=== PATIENT | male | born 1970 | race American Indian/Alaskan Native ===

== ENCOUNTER 2016-09-03 11:16 | Emergency (ER) | payer SELFPAY ==
--- NOTE | 2016-09-03 12:56 | Emergency Department Report ---
ED Back Pain/Injury HPI - General Chief Complaint: Back Pain/Injury Stated Complaint: BACK PAIN Time Seen by Provider: 09/03/16 12:54 Source: patient Limitations: No Limitations - History of Present Illness Initial Comments: 46-year-old male past medical history smoker presents with complaint of right lower back pain after lifting 200 pound television 3 days ago. Patient states that he was straining his back as he did this. Patient denies any saddle paresthesias no bladder or bowel incontinence patient is fully ambulatory without assistance. Patient states that his back is aching and he felt some muscle spasm. Denies radiation of back pain into buttock or leg. Denies any direct trauma. Was in usual state of health until lifting this object Complaint: back pain Onset/Timin -: days(s) Similar Symptoms Previously: No Place: home Radiation: none Severity: moderate Severity scale (0 -10): 7 Quality: aching Consistency: intermittent Improves With: immobilization, supine Worsens With: movement Context: while lifting, turning/twisting, bending Associated Symptoms: denies other symptoms Treatments Prior to Arrival: NSAIDS - Related Data Previous Rx's Medication Instructions Recorded Last Taken Type Cyclobenzaprine [Flexeril] 10 mg PO TID PRN #8 tablet 09/03/16 Unknown Rx Ibuprofen [Motrin] 600 mg PO Q8H PRN #25 tablet 09/03/16 Unknown Rx Allergies Allergy/AdvReac Type Severity Reaction Status Date / Time bee venom (honey bee) Allergy Swelling Verified 09/03/16 11:21 ED Review of Systems ROS: Stated complaint: BACK PAIN Other details as noted in HPI Constitutional: denies: chills, fever Eyes: denies: eye pain, eye discharge, vision change ENT: denies: ear pain, throat pain Respiratory: denies: cough, shortness of breath, wheezing Cardiovascular: denies: chest pain, palpitations Endocrine: no symptoms reported Gastrointestinal: denies: abdominal pain, nausea, diarrhea Genitourinary: denies: urgency, dysuria Musculoskeletal: back pain (3 days of lower back pain on the right side). denies: joint swelling, arthralgia Skin: denies: rash, lesions Neurological: denies: headache, weakness, paresthesias Psychiatric: denies: anxiety, depression Hematological/Lymphatic: denies: easy bleeding, easy bruising ED Past Medical Hx - Past Medical History Previous Medical History?: No - Surgical History Past Surgical History?: No - Social History Smoking Status: Current Every Day Smoker Substance Use Type: Alcohol - Medications Home Medications: Home Medications Medication Instructions Recorded Confirmed Last Taken Type Cyclobenzaprine [Flexeril] 10 mg PO TID PRN #8 tablet 09/03/16 Unknown Rx Ibuprofen [Motrin] 600 mg PO Q8H PRN #25 tablet 09/03/16 Unknown Rx ED Physical Exam - General Limitations: No Limitations General appearance: alert, in no apparent distress - Head Head exam: Present: atraumatic, normocephalic - Eye Eye exam: Present: normal appearance, PERRL, EOMI - ENT ENT exam: Present: mucous membranes moist - Neck Neck exam: Present: normal inspection - Respiratory Respiratory exam: Present: normal lung sounds bilaterally. Absent: respiratory distress - Cardiovascular Cardiovascular Exam: Present: regular rate, normal rhythm. Absent: systolic murmur, diastolic murmur, rubs, gallop - GI/Abdominal GI/Abdominal exam: Present: soft, normal bowel sounds - Rectal Rectal exam: Present: deferred - Extremities Exam Extremities exam: Present: normal inspection - Back Exam Back exam: Present: normal inspection, paraspinal tenderness (reproducible tenderness in the right latissimus region reproducible on palpation of right lower back. There is no radiation of the pain. There is no visible back wall ecchymosis.) - Neurological Exam Neurological exam: Present: alert, oriented X3, CN II-XII intact, normal gait - Psychiatric Psychiatric exam: Present: normal affect, normal mood - Skin Skin exam: Present: warm, dry, intact, normal color. Absent: rash ED Course Vital Signs 09/03/16 09/03/16 09/03/16 11:23 13:41 13:49 Temperature 97.8 F 98 F Pulse Rate 66 62 Respiratory 17 18 18 Rate Blood Pressure 112/79 Blood Pressure 118/68 [Left] O2 Sat by Pulse 99 100 Oximetry ED Medical Decision Making - Medical Decision Making A/P: Lower back muscle strain 1-Motrin and Flexeril when necessary 2-advised patient to rest his back and not do any heavy or activity or heavy lifting for several days 3-patient has no neurological deficits no saddle paresthesias fully ambulatory deep tendon reflexes are intact and strength is 5 out of 5 all extremities 4- follow-up with primary care doctor Critical care attestation.: If time is entered above; I have spent that time in minutes in the direct care of this critically ill patient, excluding procedure time. ED Disposition Clinical Impression: Low back strain Qualifiers: Encounter type: initial encounter Qualified Code(s): S39.012A - Strain of muscle, fascia and tendon of lower back, initial encounter Disposition: TO HOME OR SELFCARE Is pt being admited?: No Does the pt Need Aspirin: No Condition: Stable Instructions: Muscle Strain (ED), Low Back Strain (ED), Acute Low Back Pain (ED ) Additional Instructions: Patient states he has been having lower back pain for the last 3 days. Since Wednesday. Prescriptions: Cyclobenzaprine [Flexeril] 10 mg PO TID PRN #8 tablet PRN Reason: Muscle Spasm Ibuprofen [Motrin] 600 mg PO Q8H PRN #25 tablet PRN Reason: Pain Referrals: [facility] [Provider Group] - 3-5 Days Forms: Work/School Release Form(ED) Time of Disposition: 13:38
[2016-09-03] MEDS ORDERED: MOTRIN PO ONE (13:34)
[2016-09-03 13:50] VITALS: BP 118/68
== END 2016-09-03 13:50 | disposition home or self-care (01) ==
LOC: ED 11:16
DX: S39.012A Strain of muscle, fascia and tendon of lower back, initial encounter (principal); F17.200 Nicotine dependence, unspecified, uncomplicated; X58.XXXA Exposure to other specified factors, initial encounter; Y93.9 Activity, unspecified; Y92.9 Unspecified place or not applicable; Y99.9 Unspecified external cause status
CPT/HCPCS: 99282

== ENCOUNTER 2016-10-20 21:20 | Emergency (ER) | payer SELFPAY ==
[2016-10-20 21:31] VITALS: BP 111/80
--- NOTE | 2016-10-20 22:53 | XRay Report ---
FINAL REPORT EXAM: XR ELBOW BILAT 3+V HISTORY: BILATERAL elbow injury/PAIN TECHNIQUE: AP, lateral, and oblique portable views of each elbow PRIORS: None. FINDINGS: No evidence for acute fracture or dislocation is seen. The soft tissues are unremarkable. The anterior fat pad is normal. No posterior fat pad is noted. Bony mineralization is normal. IMPRESSION: No acute soft tissue or bony abnormality noted.
== END 2016-10-21 02:30 | disposition left against medical advice (07) ==
LOC: ED 21:20
DX: M25.521 Pain in right elbow (principal); M25.522 Pain in left elbow; Z53.21 Procedure and treatment not carried out due to patient leaving prior to being seen by health care provider

== ENCOUNTER 2016-12-02 11:29 | Emergency (ER) | payer SELFPAY ==
--- NOTE | 2016-12-02 13:46 | XRay Report ---
ROUTINE CHEST, TWO VIEWS: Cough, SOB. PA and lateral views demonstrate the heart and mediastinal contour to be of normal size and shape. The lungs are clear and fully expanded and the soft tissues and bony structures are normal. IMPRESSION: Normal study.
--- NOTE | 2016-12-02 14:03 | Emergency Department Report ---
ED ENT HPI - General Chief complaint: Upper Respiratory Infection Stated complaint: COUGHING, WEAK Time Seen by Provider: 12/02/16 12:31 Source: patient Mode of arrival: Ambulatory Limitations: No Limitations - History of Present Illness Initial comments: This is a 46-year-old male nontoxic, well nourished in appearance, no acute signs of distress presents to the ED complaining of sore throat, productive green mucus production, cough, body aches 6 days. Patient denies any fever, chills, chest pain, shortness of breath, stiff neck, nausea, vomiting, numbness or tingling. Patient denies any recent callus, long car rides or recent hospital stays. Patient denies calf pain or tenderness, or hemoptysis. Patient states allergies to honey bee. Denies any medical history. MD complaint: sore throat, other (cough) -: Gradual, days(s) (6) Location: throat Severity: mild Severity scale (0 -10): 8 Quality: aching Consistency: constant Improves with: none Worsens with: swallowing Associated Symptoms: cough, sore throat. denies: fever, gum swelling, toothache , pain with swallowing, tinnitus, hearing loss, discharge from ear, rhinorrhea - Related Data Previous Rx's Medication Instructions Recorded Last Taken Type Cyclobenzaprine [Flexeril] 10 mg PO TID PRN #8 tablet 09/03/16 Unknown Rx Ibuprofen [Motrin] 600 mg PO Q8H PRN #25 tablet 09/03/16 Unknown Rx Amoxicillin [Trimox CAP] 500 mg PO BID #20 capsule 12/02/16 Unknown Rx Benzonatate [Tessalon Perle] 100 mg PO Q6H PRN #20 capsule 12/02/16 Unknown Rx Nystas/Diphen/Xyl Visc/Mylanta 480 ml MM Q8H 10 Days 12/02/16 Unknown Rx [Magic Mouthwash] Allergies Allergy/AdvReac Type Severity Reaction Status Date / Time venom-honey bee Allergy Swelling Verified 09/03/16 11:21 [bee venom (honey bee)] ED Dental HPI - General Chief complaint: Upper Respiratory Infection Stated complaint: COUGHING, WEAK Time Seen by Provider: 12/02/16 12:31 Source: patient Mode of arrival: Ambulatory Limitations: No Limitations - Related Data Previous Rx's Medication Instructions Recorded Last Taken Type Cyclobenzaprine [Flexeril] 10 mg PO TID PRN #8 tablet 09/03/16 Unknown Rx Ibuprofen [Motrin] 600 mg PO Q8H PRN #25 tablet 09/03/16 Unknown Rx Amoxicillin [Trimox CAP] 500 mg PO BID #20 capsule 12/02/16 Unknown Rx Benzonatate [Tessalon Perle] 100 mg PO Q6H PRN #20 capsule 12/02/16 Unknown Rx Nystas/Diphen/Xyl Visc/Mylanta 480 ml MM Q8H 10 Days 12/02/16 Unknown Rx [Magic Mouthwash] Allergies Allergy/AdvReac Type Severity Reaction Status Date / Time venom-honey bee Allergy Swelling Verified 09/03/16 11:21 [bee venom (honey bee)] ED Review of Systems ROS: Stated complaint: COUGHING, WEAK Other details as noted in HPI Constitutional: denies: chills, fever Eyes: denies: eye pain, eye discharge, vision change ENT: denies: ear pain, throat pain Respiratory: cough. denies: shortness of breath, wheezing Cardiovascular: denies: chest pain, palpitations Endocrine: no symptoms reported Gastrointestinal: denies: abdominal pain, nausea, diarrhea Genitourinary: denies: urgency, dysuria Musculoskeletal: denies: back pain, joint swelling, arthralgia Skin: denies: rash, lesions Neurological: denies: headache, weakness, paresthesias Psychiatric: denies: anxiety, depression Hematological/Lymphatic: denies: easy bleeding, easy bruising ED Past Medical Hx - Past Medical History Previous Medical History?: No - Surgical History Past Surgical History?: No - Social History Smoking Status: Current Every Day Smoker Substance Use Type: Alcohol - Medications Home Medications: Home Medications Medication Instructions Recorded Confirmed Last Taken Type Cyclobenzaprine [Flexeril] 10 mg PO TID PRN #8 tablet 09/03/16 Unknown Rx Ibuprofen [Motrin] 600 mg PO Q8H PRN #25 tablet 09/03/16 Unknown Rx Amoxicillin [Trimox CAP] 500 mg PO BID #20 capsule 12/02/16 Unknown Rx Benzonatate [Tessalon Perle] 100 mg PO Q6H PRN #20 capsule 12/02/16 Unknown Rx Nystas/Diphen/Xyl Visc/Mylanta 480 ml MM Q8H 10 Days 12/02/16 Unknown Rx [Magic Mouthwash] ED Physical Exam - General Limitations: No Limitations General appearance: alert, in no apparent distress - Head Head exam: Present: atraumatic, normocephalic, normal inspection - Eye Eye exam: Present: normal appearance, PERRL, EOMI. Absent: scleral icterus, conjunctival injection, nystagmus, periorbital swelling, periorbital tenderness - ENT ENT exam: Present: mucous membranes moist, TM's normal bilaterally, normal external ear exam - Expanded ENT Exam Expanded Mouth exam: Present: normal external inspection, tongue normal. Absent: drooling, trismus, muffled voice, tongue elevation, laceration Teeth exam: Present: normal inspection Throat exam: Positive: tonsillar erythema, tonsillomegaly (2+), tonsillar exudate, other (Uvula midline. No abscess or swelling noted. ). Negative: R peritonsillar mass, L peritonsillar mass - Neck Neck exam: Present: normal inspection, full ROM. Absent: tenderness, meningismus, lymphadenopathy, thyromegaly - Respiratory Respiratory exam: Present: normal lung sounds bilaterally. Absent: respiratory distress, wheezes, rales, rhonchi, stridor, chest wall tenderness, accessory muscle use, decreased breath sounds, prolonged expiratory - Cardiovascular Cardiovascular Exam: Present: regular rate, normal rhythm, normal heart sounds. Absent: systolic murmur, diastolic murmur, rubs, gallop - GI/Abdominal GI/Abdominal exam: Present: soft, normal bowel sounds. Absent: distended, tenderness, guarding, rebound, rigid, diminished bowel sounds - Rectal Rectal exam: Present: deferred - Extremities Exam Extremities exam: Present: normal inspection, full ROM, normal capillary refill. Absent: tenderness, pedal edema, joint swelling, calf tenderness - Back Exam Back exam: Present: normal inspection, full ROM. Absent: tenderness, CVA tenderness (R), CVA tenderness (L), muscle spasm, paraspinal tenderness, vertebral tenderness, rash noted - Neurological Exam Neurological exam: Present: alert, oriented X3, CN II-XII intact, normal gait, reflexes normal - Psychiatric Psychiatric exam: Present: normal affect, normal mood - Skin Skin exam: Present: warm, dry, intact, normal color. Absent: rash ED Course Vital Signs 12/02/16 11:33 Temperature 98.5 F Pulse Rate 95 H Respiratory 20 Rate Blood Pressure 128/85 O2 Sat by Pulse 100 Oximetry - Reevaluation(s) Reevaluation #1: 12/02/16 14:04 Patient is speaking in full sentences with no signs of distress noted. ED Medical Decision Making - Medical Decision Making 46-year-old male that presents with upper respiratory infection and tonsillitis with exudate. Patient is stable and was examined by me. Influenza swab has been obtained with negative findings. CT of the chest has been obtained and dictated by radiologist with normal examination. Patient notified of x-ray results with him further questioning by the patient. Patient received lidocaine viscus in the ED patient stated she was better and sore throat has subsided. Patient be treated with amoxicillin. Patient was instructed to follow -up with a primary care doctor in 3-5 days or if symptoms worsen and continue return to emergency room as soon as possible possible. Patient is hemodynamically stable with stable vital signs. Patient states he is feeling better. At time time of discharge, the patient does not seem toxic or ill in appearance. No acute signs of distress noted. Patient agrees to discharge treatment plan of care. No further questions noted by the patient. Critical care attestation.: If time is entered above; I have spent that time in minutes in the direct care of this critically ill patient, excluding procedure time. ED Disposition Clinical Impression: Tonsillitis with exudate Upper respiratory infection Qualifiers: URI type: unspecified URI Qualified Code(s): J06.9 - Acute upper respiratory infection, unspecified Disposition: DC-01 TO HOME OR SELFCARE Is pt being admited?: No Does the pt Need Aspirin: No Condition: Stable Instructions: Amoxicillin (By mouth), Upper Respiratory Infection (ED), Tonsillitis (ED) Additional Instructions: Follow-up with a primary care doctor in 3-5 days or if symptoms worsen and continue return to emergency room as soon as possible possible. Prescriptions: Amoxicillin [Trimox CAP] 500 mg PO BID #20 capsule Benzonatate [Tessalon Perle] 100 mg PO Q6H PRN #20 capsule PRN Reason: Cough Nystas/Diphen/Xyl Visc/Mylanta [Magic Mouthwash] 480 ml MM Q8H 10 Days Referrals: NOEMI LANDA MD [Primary Care Provider] - 3-5 Days PACO BALDERRAMA MD [Staff Physician] - 3-5 Days [facility] [Outside] - 3-5 Days [facility] [Outside] - 3-5 Days Forms: Work/School Release Form(ED)
[2016-12-02] MEDS ORDERED: LIDOCAINE VISCOUS 2% PO ONE (14:12)
[2016-12-02] MEDS ORDERED: TESSALON PERLES PO ONE (14:12)
[2016-12-02 14:13] VITALS: BP 106/62
== END 2016-12-02 14:23 | disposition home or self-care (01) ==
LOC: ED 11:29
DX: J06.9 Acute upper respiratory infection, unspecified (principal); F17.200 Nicotine dependence, unspecified, uncomplicated; Z91.030 Bee allergy status
CPT/HCPCS: 71020; 87400; 99283

== ENCOUNTER 2017-03-24 16:25 | Emergency (ER) | payer OTHER ==
[2017-03-24 16:53] VITALS: BP 110/71
[2017-03-24] MEDS ORDERED: TORADOL IM ONE (20:48)
--- NOTE | 2017-03-24 21:45 | Emergency Department Report ---
ED Back Pain/Injury HPI - General Chief Complaint: Back Pain/Injury Stated Complaint: LOWER BACK PAIN Time Seen by Provider: 03/24/17 19:56 Source: patient Limitations: No Limitations - History of Present Illness Initial Comments: This is a 46-year-old male nontoxic, well nourished in appearance, no acute signs of distress presents to the ED with c/o of chronic intermittent low back pain x8 years. Patient denies any trauma to the region. Patient states back pain radiates to his left lower extremity. Patient had a MRI 8 years ago and was diagnosed with severe degenerative lumbar spine. Patient denies any chest pain, shortness of breath, bladder or bowel stability, numbness, tingling, fever , chills, nausea, vomiting, headache or stiff neck. Patient denies any drug allergies. Past medical history includes low back pain. MD Complaint: back pain -: year(s) Similar Symptoms Previously: Yes Radiation: left leg Severity: mild Severity scale (0 -10): 8 Quality: aching Consistency: intermittent Improves With: immobilization, supine, sitting upright Worsens With: movement, walking Associated Symptoms: denies other symptoms. denies: confusion, weakness, chest pain, numbness, difficulty walking, cough, difficulty urinating, diaphoresis, incontinence, fever/chills, constipation, headaches, abdominal pain, loss of appetite, malaise, nausea/vomiting, rash, seizure, shortness of breath, syncope - Related Data Previous Rx's Medication Instructions Recorded Last Taken Type Cyclobenzaprine [Flexeril] 10 mg PO TID PRN #8 tablet 09/03/16 Unknown Rx Ibuprofen [Motrin] 600 mg PO Q8H PRN #25 tablet 09/03/16 Unknown Rx Amoxicillin [Trimox CAP] 500 mg PO BID #20 capsule 12/02/16 Unknown Rx Benzonatate [Tessalon Perle] 100 mg PO Q6H PRN #20 capsule 12/02/16 Unknown Rx Nystas/Diphen/Xyl Visc/Mylanta 480 ml MM Q8H 10 Days udc 12/02/16 Unknown Rx [Magic Mouthwash] Cyclobenzaprine [Flexeril] 10 mg PO QHS PRN #7 tablet 03/24/17 Unknown Rx Ibuprofen [Motrin] 600 mg PO Q8H PRN #30 tablet 03/24/17 Unknown Rx Allergies Allergy/AdvReac Type Severity Reaction Status Date / Time venom-honey bee Allergy Swelling Verified 09/03/16 11:21 [bee venom (honey bee)] ED Review of Systems ROS: Stated complaint: LOWER BACK PAIN Other details as noted in HPI Constitutional: denies: chills, fever Eyes: denies: eye pain, eye discharge, vision change ENT: denies: ear pain, throat pain Respiratory: denies: cough, shortness of breath, wheezing Cardiovascular: denies: chest pain, palpitations Endocrine: no symptoms reported Gastrointestinal: denies: abdominal pain, nausea, diarrhea Genitourinary: denies: urgency, dysuria Musculoskeletal: back pain. denies: joint swelling, arthralgia Skin: denies: rash, lesions Neurological: denies: headache, weakness, paresthesias Psychiatric: denies: anxiety, depression Hematological/Lymphatic: denies: easy bleeding, easy bruising ED Past Medical Hx - Past Medical History Previous Medical History?: Yes Additional medical history: Back pain/injury - Surgical History Past Surgical History?: No - Social History Smoking Status: Current Every Day Smoker Substance Use Type: Alcohol, Non Opiate Pain, Prescribed - Medications Home Medications: Home Medications Medication Instructions Recorded Confirmed Last Taken Type Cyclobenzaprine [Flexeril] 10 mg PO TID PRN #8 tablet 09/03/16 Unknown Rx Ibuprofen [Motrin] 600 mg PO Q8H PRN #25 tablet 09/03/16 Unknown Rx Amoxicillin [Trimox CAP] 500 mg PO BID #20 capsule 12/02/16 Unknown Rx Benzonatate [Tessalon Perle] 100 mg PO Q6H PRN #20 capsule 12/02/16 Unknown Rx Nystas/Diphen/Xyl Visc/Mylanta 480 ml MM Q8H 10 Days udc 12/02/16 Unknown Rx [Magic Mouthwash] Cyclobenzaprine [Flexeril] 10 mg PO QHS PRN #7 tablet 03/24/17 Unknown Rx Ibuprofen [Motrin] 600 mg PO Q8H PRN #30 tablet 03/24/17 Unknown Rx ED Physical Exam - General Limitations: No Limitations General appearance: alert, in no apparent distress - Head Head exam: Present: atraumatic, normocephalic - Eye Eye exam: Present: normal appearance, PERRL, EOMI Pupils: Present: normal accommodation - ENT ENT exam: Present: normal exam, normal orophraynx, mucous membranes moist, TM's normal bilaterally, normal external ear exam - Neck Neck exam: Present: normal inspection, full ROM. Absent: tenderness, meningismus, lymphadenopathy, thyromegaly - Respiratory Respiratory exam: Present: normal lung sounds bilaterally. Absent: respiratory distress, wheezes, rales, rhonchi, stridor, chest wall tenderness, accessory muscle use, decreased breath sounds, prolonged expiratory - Cardiovascular Cardiovascular Exam: Present: regular rate, normal rhythm, normal heart sounds. Absent: irregular rhythm, systolic murmur, diastolic murmur, rubs, gallop - GI/Abdominal GI/Abdominal exam: Present: soft, normal bowel sounds. Absent: distended, tenderness, guarding, rebound, rigid, diminished bowel sounds - Rectal Rectal exam: Present: deferred - Extremities Exam Extremities exam: Present: normal inspection, full ROM, normal capillary refill. Absent: tenderness, pedal edema, joint swelling, calf tenderness - Back Exam Back exam: Present: normal inspection, full ROM, paraspinal tenderness (lumbar region). Absent: tenderness, CVA tenderness (R), CVA tenderness (L), muscle spasm, vertebral tenderness, rash noted - Expanded Back Exam Expanded Back exam: Present: normal rectal tone. Absent: saddle anesthesia Back exam: Negative Straight Leg Raising: Left, Right - Neurological Exam Neurological exam: Present: alert, oriented X3, CN II-XII intact, normal gait, reflexes normal - Psychiatric Psychiatric exam: Present: normal affect, normal mood - Skin Skin exam: Present: warm, dry, intact, normal color. Absent: rash ED Course Vital Signs 03/24/17 16:50 Temperature 98.1 F Pulse Rate 91 H Respiratory 14 Rate Blood Pressure 110/71 O2 Sat by Pulse 98 Oximetry - Reevaluation(s) Reevaluation #1: 03/24/17 21:47 Patient is speaking in full sentences with no signs of distress noted. ED Medical Decision Making - Medical Decision Making This is a 46-year-old male presents with chronic low back pain. Patient is stable and was examined by me. Patient received Toradol 30 mg IM in the ED which patient states symptoms are improving and are subsiding. Patient denies any urinary symptoms. Patient is discharged with Flexeril and Motrin and was instructed not to operate any machinery while taking Flexeril due to drowsiness. Patient was instructed Follow-up with a primary care doctor in 3-5 days or if symptoms worsen and continue return to emergency room as soon as possible. At time time of discharge, the patient does not seem toxic or ill in appearance. No acute signs of distress noted. Patient agrees to discharge treatment plan of care. No further questions noted by the patient. Critical care attestation.: If time is entered above; I have spent that time in minutes in the direct care of this critically ill patient, excluding procedure time. ED Disposition Clinical Impression: Low back strain Qualifiers: Encounter type: initial encounter Qualified Code(s): S39.012A - Strain of muscle, fascia and tendon of lower back, initial encounter Disposition: TO HOME OR SELFCARE Is pt being admited?: No Does the pt Need Aspirin: No Condition: Stable Instructions: Cyclobenzaprine (By mouth), Ibuprofen (By mouth), Low Back Strain (ED) Additional Instructions: Follow-up with your primary care doctor in 3-5 days or if symptoms worsen such as bladder or bowel stability, chest pain, short of breath, numbness or tingling sensation in extremities, headache, dizziness, visual changes, nausea vomiting, or abdominal pain, return back to emergency room as was possible. Take ibuprofen and Flexeril as prescribed. Do not operate heavy machinery while taking Flexeril due to sedation Prescriptions: Cyclobenzaprine [Flexeril] 10 mg PO QHS PRN #7 tablet PRN Reason: Muscle Spasm Ibuprofen [Motrin] 600 mg PO Q8H PRN #30 tablet PRN Reason: Pain Referrals: ADIS BURNHAM MD [Primary Care Provider] - 3-5 Days PRIMARY CARE, [Referring] - 3-5 Days [facility] [Outside] - 3-5 Days [facility] [Outside] - 3-5 Days Forms: Work/School Release Form(ED)
== END 2017-03-24 22:18 | disposition home or self-care (01) ==
LOC: ED 16:25
DX: S39.012A Strain of muscle, fascia and tendon of lower back, initial encounter (principal); F17.200 Nicotine dependence, unspecified, uncomplicated; Z91.030 Bee allergy status; G89.29 Other chronic pain; X58.XXXA Exposure to other specified factors, initial encounter; Y93.89 Activity, other specified; Y92.89 Other specified places as the place of occurrence of the external cause; Y99.8 Other external cause status
CPT/HCPCS: 96372; 99282; J1885

== ENCOUNTER 2017-04-11 08:40 | Emergency (ER) | payer OTHER ==
--- NOTE | 2017-04-11 09:46 | XRay Report ---
LEFT KNEE, 3 views: History: Left knee injury. Findings: A large joint effusion is suspected on the lateral image. Normal bone mineralization. No acute osseous findings or joint pathology is appreciated. IMPRESSION: Large joint effusion without bony abnormality. If internal derangement is suspected, MRI would provide the most information.
[2017-04-11] MEDS ORDERED: TORADOL IM ONE (12:27)
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
[2017-04-11 13:27] VITALS: BP 128/78
== END 2017-04-11 13:27 | disposition home or self-care (01) ==
LOC: ED 08:40
DX: S76.912A Strain of unspecified muscles, fascia and tendons at thigh level, left thigh, initial encounter (principal); F17.200 Nicotine dependence, unspecified, uncomplicated; Z91.030 Bee allergy status; X58.XXXA Exposure to other specified factors, initial encounter; Y93.55 Activity, bike riding; Y92.89 Other specified places as the place of occurrence of the external cause; Y99.8 Other external cause status
CPT/HCPCS: 29505; 73562; 96372; 99284; J1885

== ENCOUNTER 2017-06-28 17:35 | Emergency (ER) | payer OTHER ==
[2017-06-28 17:41] VITALS: BP 117/79
--- NOTE | 2017-06-28 20:00 | XRay Report ---
FINAL REPORT EXAM: XR HAND 3+V RT HISTORY: RIGHT HAND INJURY WITH RING FINGER DEFORMITY TECHNIQUE: Three views right hand Comparison: None FINDINGS: Normal bony mineralization. Soft tissue swelling projects over the dorsal 4th digit PIP joint without fracture identified. No dislocation. No subluxation. No radiopaque foreign body. Apparent old healed 5th boxer's fracture of the metacarpal head. IMPRESSION: Soft tissue focal swelling over the 4th digit dorsal PIP joint. No fracture or dislocation identified. Old healed boxer's fracture 5th digit.
== END 2017-06-28 17:41 | disposition left against medical advice (07) ==
LOC: ED 17:35
DX: S69.91XA Unspecified injury of right wrist, hand and finger(s), initial encounter (principal); V89.2XXA Person injured in unspecified motor-vehicle accident, traffic, initial encounter; Z53.21 Procedure and treatment not carried out due to patient leaving prior to being seen by health care provider; Y93.89 Activity, other specified; Y92.89 Other specified places as the place of occurrence of the external cause; Y99.8 Other external cause status

== ENCOUNTER 2017-12-08 16:35 | Emergency (ER) | payer OTHER ==
[2017-12-08 19:55] VITALS: BP 98/76
[2017-12-08] MEDS ORDERED: TORADOL IM ONE (20:17)
--- NOTE | 2017-12-08 21:26 | Emergency Department Report ---
ED Upper Extremity Inj HPI - General Chief Complaint: Shoulder Injury Stated Complaint: LEFT SHOULDER PAIN Time Seen by Provider: 12/08/17 20:17 Source: patient Mode of arrival: Ambulatory Limitations: No Limitations - History of Present Illness Initial Comments: This is a 47-year-old female nontoxic, well nourished in appearance, no acute signs of distress presents to the ED with c/o of left shoulder pain 2-3 weeks. Patient stated that she has been doing a lot of repetitive motions at work. Patient denies any trauma. Patient denies any numbness, tingling, fever, chills , nausea, vomiting, chest pain, shortness of breath, headache, stiff neck. Patient denies any joint swelling or joint redness. Patient denies decreased range of motion. Patient denies decreased ROM. Patient denies any drug allergies or PMH. MD Complaint: Injury to:: left, shoulder -: week(s) Other Extremity Injury: Shoulder: Left Other Injuries: none Place: work Severity scale (0 -10): 8 Improves With: immobilization Worsens With: movement of extremity Associated Symptoms: denies other symptoms. denies: weakness, numbness, neck pain, suspects foreign body, nausea/vomiting, heard/felt popping sensat - Related Data Previous Rx's Medication Instructions Recorded Last Taken Type Cyclobenzaprine [Flexeril] 10 mg PO TID PRN #8 tablet 09/03/16 Unknown Rx Ibuprofen [Motrin] 600 mg PO Q8H PRN #25 tablet 09/03/16 Unknown Rx Amoxicillin [Trimox CAP] 500 mg PO BID #20 capsule 12/02/16 Unknown Rx Benzonatate [Tessalon Perle] 100 mg PO Q6H PRN #20 capsule 12/02/16 Unknown Rx Nystas/Diphen/Xyl Visc/Mylanta 480 ml MM Q8H 10 Days udc 12/02/16 Unknown Rx [Magic Mouthwash] Cyclobenzaprine [Flexeril] 10 mg PO QHS PRN #7 tablet 03/24/17 Unknown Rx Ibuprofen [Motrin] 600 mg PO Q8H PRN #30 tablet 03/24/17 Unknown Rx Ibuprofen [Motrin] 600 mg PO Q8H PRN #30 tablet 04/11/17 Unknown Rx traMADol [Ultram] 50 mg PO Q6HR PRN #12 tablet 04/11/17 Unknown Rx Cyclobenzaprine [Flexeril] 10 mg PO QHS PRN #10 tablet 12/08/17 Unknown Rx Ibuprofen [Motrin] 600 mg PO Q8H PRN #20 tablet 12/08/17 Unknown Rx Allergies Allergy/AdvReac Type Severity Reaction Status Date / Time venom-honey bee Allergy Swelling Verified 12/08/17 16:53 [bee venom (honey bee)] ED Review of Systems ROS: Stated complaint: LEFT SHOULDER PAIN Other details as noted in HPI Constitutional: denies: chills, fever Eyes: denies: eye pain, eye discharge, vision change ENT: denies: ear pain, throat pain Respiratory: denies: cough, shortness of breath, wheezing Cardiovascular: denies: chest pain, palpitations Endocrine: no symptoms reported Gastrointestinal: denies: abdominal pain, nausea, diarrhea Genitourinary: denies: urgency, dysuria Musculoskeletal: arthralgia. denies: back pain, joint swelling Skin: denies: rash, lesions Neurological: denies: headache, weakness, paresthesias Psychiatric: denies: anxiety, depression Hematological/Lymphatic: denies: easy bleeding, easy bruising ED Past Medical Hx - Past Medical History Previous Medical History?: No Additional medical history: Back pain/injury - Surgical History Past Surgical History?: No - Social History Smoking Status: Current Every Day Smoker Substance Use Type: None - Medications Home Medications: Home Medications Medication Instructions Recorded Confirmed Last Taken Type Cyclobenzaprine [Flexeril] 10 mg PO TID PRN #8 tablet 09/03/16 Unknown Rx Ibuprofen [Motrin] 600 mg PO Q8H PRN #25 tablet 09/03/16 Unknown Rx Amoxicillin [Trimox CAP] 500 mg PO BID #20 capsule 12/02/16 Unknown Rx Benzonatate [Tessalon Perle] 100 mg PO Q6H PRN #20 capsule 12/02/16 Unknown Rx Nystas/Diphen/Xyl Visc/Mylanta 480 ml MM Q8H 10 Days udc 12/02/16 Unknown Rx [Magic Mouthwash] Cyclobenzaprine [Flexeril] 10 mg PO QHS PRN #7 tablet 03/24/17 Unknown Rx Ibuprofen [Motrin] 600 mg PO Q8H PRN #30 tablet 03/24/17 Unknown Rx Ibuprofen [Motrin] 600 mg PO Q8H PRN #30 tablet 04/11/17 Unknown Rx traMADol [Ultram] 50 mg PO Q6HR PRN #12 tablet 04/11/17 Unknown Rx Cyclobenzaprine [Flexeril] 10 mg PO QHS PRN #10 tablet 12/08/17 Unknown Rx Ibuprofen [Motrin] 600 mg PO Q8H PRN #20 tablet 12/08/17 Unknown Rx ED Physical Exam - General Limitations: No Limitations General appearance: alert, in no apparent distress - Head Head exam: Present: atraumatic, normocephalic - Eye Eye exam: Present: normal appearance Pupils: Present: normal accommodation - ENT ENT exam: Present: normal exam, mucous membranes moist - Neck Neck exam: Present: normal inspection, full ROM. Absent: tenderness, meningismus, lymphadenopathy - Respiratory Respiratory exam: Present: normal lung sounds bilaterally. Absent: respiratory distress, wheezes, rales, rhonchi, stridor, chest wall tenderness, accessory muscle use, decreased breath sounds, prolonged expiratory - Cardiovascular Cardiovascular Exam: Present: regular rate, normal rhythm, normal heart sounds. Absent: bradycardia, tachycardia, irregular rhythm, systolic murmur, diastolic murmur, rubs, gallop - GI/Abdominal GI/Abdominal exam: Present: soft, normal bowel sounds. Absent: distended, tenderness, guarding, rebound, rigid, diminished bowel sounds - Rectal Rectal exam: Present: deferred - Extremities Exam Extremities exam: Present: normal inspection, full ROM, tenderness, normal capillary refill. Absent: joint swelling - Expanded Upper Extremity Exam Left General: Present: normal inspection Shoulder Exam: Present: normal inspection, full ROM, tenderness. Absent: swelling, abrasion, laceration, ecchymosis, deformity, crepidus, dislocation, erythema, tenderness over AC joint Upper Arm exam: Present: normal inspection, full ROM. Absent: tenderness, swelling Elbow exam: Present: normal inspection, full ROM. Absent: tenderness, swelling Forearm Wrist exam: Present: normal inspection, full ROM. Absent: tenderness, swelling Hand Wrist exam: Present: normal inspection, full ROM. Absent: tenderness, swelling Neuro motor exam: Present: wrist extension intact, thumb opposition intact, thumb IP flexion intact, thumb adduction intact, fingers 2-5 abduction intact Neurosensory exam: Present: 2-point discrimination, radial nerve intact, ulnar nerve intact, median nerve intact Vascular: Present: vascular compromise, normal capillary refill, radial pulse, brachial pulse, ulnar pulse - Back Exam Back exam: Present: normal inspection, full ROM. Absent: tenderness, CVA tenderness (R), CVA tenderness (L), muscle spasm, paraspinal tenderness, vertebral tenderness, rash noted - Neurological Exam Neurological exam: Present: alert, oriented X3, normal gait - Psychiatric Psychiatric exam: Present: normal affect, normal mood - Skin Skin exam: Present: warm, dry, intact, normal color. Absent: rash ED Course Vital Signs 12/08/17 12/08/17 12/08/17 16:53 19:55 20:28 Temperature 99 F 98.5 F Pulse Rate 75 69 Respiratory 18 16 18 Rate Blood Pressure 113/69 Blood Pressure 98/76 [Left] O2 Sat by Pulse 99 100 Oximetry - Reevaluation(s) Reevaluation #1: 12/08/17 21:25 Patient is speaking in full sentences with no signs of distress noted. ED Medical Decision Making - Medical Decision Making This is a 47-year-old female that presents with left shoulder strain. Patient is stable and was examined by me. I referred patient to an orthopedic doctor for further evaluation for possible MRI. X-ray has been obtained and dictated by the radiologist. Patient is notified of the x-ray report with noted by the patient. Patient does have normal gait with no tenderness and no joint swelling. No ecchymosis. no joint redness or swelling. Not warm to touch. No signs of cellulites present. Patient was instructed to RICE therapy. Patient received Toradol for pain which stated symptoms is improving and subsiding. Patient is discharged with Motrin. At time of discharge, the patient does not seem toxic or ill in appearance. No acute signs of distress noted. Patient agrees to discharge treatment plan of care. No further questions noted by the patient. Critical care attestation.: If time is entered above; I have spent that time in minutes in the direct care of this critically ill patient, excluding procedure time. ED Disposition Clinical Impression: Left shoulder strain Qualifiers: Encounter type: initial encounter Qualified Code(s): S46.912A - Strain of unspecified muscle, fascia and tendon at shoulder and upper arm level, left arm , initial encounter Disposition: TO HOME OR SELFCARE Is pt being admited?: No Does the pt Need Aspirin: No Condition: Stable Instructions: Rotator Cuff Injury (ED), RICE Therapy (ED) Additional Instructions: Follow-up with a Orthopedic doctor in 3-5 days or if symptoms worsen and continue return to emergency room as soon as possible. Take ibuprofen and Flexeril as prescribed. Do not operate heavy machinery while taking Flexeril due to sedation Prescriptions: Cyclobenzaprine [Flexeril] 10 mg PO QHS PRN #10 tablet PRN Reason: Muscle Spasm Ibuprofen [Motrin] 600 mg PO Q8H PRN #20 tablet PRN Reason: Pain Referrals: PRIMARY CAREMD [Primary Care Provider] - 3-5 Days MEAGAN VASQUEZ MD [Staff Physician] - 3-5 Days [facility] [Outside] - 3-5 Days Forms: Work/School Release Form(ED)
--- NOTE | 2017-12-08 22:11 | XRay Report ---
FINAL REPORT EXAM: XR SHOULDER 2+V LT HISTORY: left shoulder pain TECHNIQUE: 3 views of the left shoulder PRIORS: None. FINDINGS: The glenohumeral and acromioclavicular joints are normally aligned. The bones are normally mineralized. The soft tissues are unremarkable. IMPRESSION: Normal left shoulder.
== END 2017-12-08 22:22 | disposition home or self-care (01) ==
LOC: ED 16:35
DX: S46.912A Strain of unspecified muscle, fascia and tendon at shoulder and upper arm level, left arm, initial encounter (principal); F17.200 Nicotine dependence, unspecified, uncomplicated; Z91.030 Bee allergy status; X50.3XXA Overexertion from repetitive movements, initial encounter; Y93.89 Activity, other specified; Y92.89 Other specified places as the place of occurrence of the external cause; Y99.0 Civilian activity done for income or pay
CPT/HCPCS: 73030; 96372; 99283; J1885

== ENCOUNTER 2018-10-26 06:09 | Emergency (ER) | payer OTHER ==
[2018-10-26 06:18] VITALS: BP 128/85
--- NOTE | 2018-10-26 07:48 | Emergency Department Report ---
Eye Injury/Foreign Body - HPI Eye Location: Left Severity: Mild Tetanus Status: Up to Date Eye Symptoms: Eye Pain: No, Blurred Vision: No, Eye Redness: No, Grinding/Hammering Metal: No, Used Eye Protection: Yes, Contact Lens Use: No, Recalls Injury: No, Photophobia: No Other History: 48 yo w l eye stye for weeks. warm compresses not helping. works with wood product, wears eye protection. no trauma. no contacts. requesting work note. va unchanged. no eye pain ED Review of Systems ROS: Stated complaint: LEFT EYE IRRITATION, BLURRY Other details as noted in HPI Comment: All other systems reviewed and negative ED Past Medical Hx - Past Medical History Previous Medical History?: Yes Additional medical history: Back pain/injury - Surgical History Past Surgical History?: No - Social History Smoking Status: Current Every Day Smoker Substance Use Type: Alcohol - Medications Home Medications: Home Medications Medication Instructions Recorded Confirmed Last Taken Type Gentamicin 0.3% Ophth Oint 1 applicatio OP BID #1 tube 10/26/18 Unknown Rx diphenhydrAMINE [Benadryl CAP] 25 mg PO Q8HR PRN #12 capsule 10/26/18 Unknown Rx Eye Injury Exam - Exam General: Vital signs noted. No distress. Alert and acting appropriately. a/o stye left upper lid no conjunc. redness perrl eoms intact no eye pain globe intact ED Course Vital Signs 10/26/18 06:13 Temperature 98.0 F Pulse Rate 88 Respiratory 18 Rate Blood Pressure 128/85 O2 Sat by Pulse 100 Oximetry ED Medical Decision Making - Differential Diagnosis [facility] Critical care attestation.: If time is entered above; I have spent that time in minutes in the direct care of this critically ill patient, excluding procedure time. ED Disposition Clinical Impression: Stye Disposition: DC-01 TO HOME OR SELFCARE Is pt being admited?: No Does the pt Need Aspirin: No Condition: Stable Instructions: Shawn (ED) Additional Instructions: warm compresses med as ordered wear safety glasses follow up with eye MD referral below Referrals: SACHA HARRISON MD [Staff Physician] - 3-5 Days Forms: Work/School Release Form(ED) Time of Disposition: 07:45
== END 2018-10-26 07:56 | disposition home or self-care (01) ==
LOC: ED 06:09
DX: H00.014 Hordeolum externum left upper eyelid (principal); Z98.890 Other specified postprocedural states; F17.200 Nicotine dependence, unspecified, uncomplicated; Z79.899 Other long term (current) drug therapy
CPT/HCPCS: 99282

== ENCOUNTER 2018-12-12 09:41 | Emergency (ER) | payer OTHER ==
[2018-12-12] MEDS ORDERED: ULTRAM PO ONE (10:32)
--- NOTE | 2018-12-12 10:56 | Emergency Department Report ---
ED Back Pain/Injury HPI - General Chief Complaint: Back Pain/Injury Stated Complaint: LOWER BACK PAIN Time Seen by Provider: 12/12/18 10:10 Source: patient Limitations: No Limitations - History of Present Illness Initial Comments: 48-year-old male chronic back pain for years. Worse for 4 days. History of previous MRI showing herniated disc as per pt had no weakness or numbness reported. No recent injury -: Gradual, year(s) (multiple) Similar Symptoms Previously: Yes Radiation: abdomen (rlq) Severity scale (0 -10): 9 Quality: aching Consistency: constant Improves With: immobilization Worsens With: movement Context: while lifting, turning/twisting, bending Associated Symptoms: denies other symptoms. denies: weakness, numbness, difficulty walking, difficulty urinating, incontinence, fever/chills, nausea/vomiting, shortness of breath Treatments Prior to Arrival: other (none) - Related Data Previous Rx's Medication Instructions Recorded Last Taken Type Gentamicin 0.3% Ophth Oint 1 applicatio OP BID #1 tube 10/26/18 Unknown Rx diphenhydrAMINE [Benadryl CAP] 25 mg PO Q8HR PRN #12 capsule 10/26/18 Unknown Rx Ibuprofen [Motrin] 800 mg PO Q8HR PRN #30 tablet 12/12/18 Unknown Rx traMADol [Ultram 50 MG tab] 50 mg PO Q6HR PRN #15 tablet 12/12/18 Unknown Rx Allergies Allergy/AdvReac Type Severity Reaction Status Date / Time venom-honey bee Allergy Swelling Verified 12/08/17 16:53 [bee venom (honey bee)] ED Review of Systems ROS: Stated complaint: LOWER BACK PAIN Other details as noted in HPI ED Past Medical Hx - Past Medical History Previous Medical History?: No Additional medical history: Back pain/injury - Surgical History Past Surgical History?: No - Social History Smoking Status: Current Every Day Smoker Substance Use Type: Alcohol - Medications Home Medications: Home Medications Medication Instructions Recorded Confirmed Last Taken Type Gentamicin 0.3% Ophth Oint 1 applicatio OP BID #1 tube 10/26/18 Unknown Rx diphenhydrAMINE [Benadryl CAP] 25 mg PO Q8HR PRN #12 capsule 10/26/18 Unknown Rx Ibuprofen [Motrin] 800 mg PO Q8HR PRN #30 tablet 12/12/18 Unknown Rx traMADol [Ultram 50 MG tab] 50 mg PO Q6HR PRN #15 tablet 12/12/18 Unknown Rx ED Physical Exam - General Limitations: No Limitations - Other Other exam information: Gen.: No acute distress Head: Atraumatic Eyes: Normal appearance ENT: Moist mucous membranes Neck: Normal appearance, no posterior midline tenderness, no meningismus Chest: Clear to auscultation bilaterally Cardiovascular: Regular rate and rhythm Abdomen: Normal appearance, soft, nontender, no rebound or guarding, normal bowel sounds Back: Normal appearance, nontender, no midline tenderness. Pain 0 right side of the lower back with movement Extremity: Full range of motion, normal appearance Neuro: Alert, clear speech, no focal motor or sensory deficit Psychiatric: Appropriate Skin: No rash ED Course Vital Signs 12/12/18 12/12/18 09:46 10:44 Temperature 98.4 F Pulse Rate 85 Respiratory 16 18 Rate Blood Pressure 114/78 O2 Sat by Pulse 99 Oximetry ED Medical Decision Making - Medical Decision Making Patient with chronic pain without acute injury. Patient performs a lot of bending and twisting at work. Pain medicine and work excuse provided. Outpatient follow-up encouraged. - Differential Diagnosis chronic pain, acute injury, strain Critical Care Time: No Critical care attestation.: If time is entered above; I have spent that time in minutes in the direct care of this critically ill patient, excluding procedure time. ED Disposition Clinical Impression: Acute exacerbation of chronic low back pain Disposition: TO HOME OR SELFCARE Is pt being admited?: No Does the pt Need Aspirin: No Condition: Stable Instructions: Chronic Back Pain (ED) Additional Instructions: Take the medication as prescribed. Follow-up with your doctor or with the doctor/clinic provided. Return if symptoms worsen as indicated by your discharge instructions. Prescriptions: Ibuprofen [Motrin] 800 mg PO Q8HR PRN #30 tablet PRN Reason: Pain, Moderate (4-6) traMADol [Ultram 50 MG tab] 50 mg PO Q6HR PRN #15 tablet PRN Reason: Pain Referrals: [facility] [Provider Group] - 3-5 Days GERMAINE BEAUCHAMP MD [Staff Physician] - 3-5 Days MEAGAN VASQUEZ MD [Staff Physician] - 3-5 Days Forms: Work/School Release Form(ED) Time of Disposition: 11:18
[2018-12-12] MEDS: TORADOL IM ONE ×2 (11:26→11:55)
[2018-12-12 12:51] VITALS: BP 118/74
== END 2018-12-12 11:27 | disposition home or self-care (01) ==
LOC: ED 09:41
DX: M54.5 Low back pain (principal); G89.29 Other chronic pain; F17.200 Nicotine dependence, unspecified, uncomplicated
CPT/HCPCS: 96372; 99282; J1885

== ENCOUNTER 2020-02-19 07:07 | Emergency (ER) | payer SELFPAY ==
[2020-02-19 07:22] VITALS: BP 114/79
--- NOTE | 2020-02-19 12:40 | Emergency Department Report ---
Eye Injury/Foreign Body - HPI Duration: 1 week Eye Location: Right Severity: Mild Tetanus Status: Up to Date Eye Symptoms: Eye Pain: No, Blurred Vision: No, Eye Redness: No, Grinding/Hammering Metal: No, Contact Lens Use: No, Recalls Injury: No, Photophobia: No Other History: Patient presents with complaints of stye to the right upper lid x1 week, no relief with warm compresses ED Review of Systems ROS: Stated complaint: RT EYE INFECTION Other details as noted in HPI Comment: All other systems reviewed and negative Eyes: as per HPI ED Past Medical Hx - Past Medical History Previous Medical History?: No Additional medical history: Back pain/injury - Surgical History Past Surgical History?: No - Social History Smoking Status: Current Every Day Smoker Substance Use Type: Alcohol - Medications Home Medications: Home Medications Medication Instructions Recorded Confirmed Last Taken Type Gentamicin 0.3% Ophth Oint 1 applicatio OP BID #1 tube 10/26/18 Unknown Rx diphenhydrAMINE [Benadryl CAP] 25 mg PO Q8HR PRN #12 capsule 10/26/18 Unknown Rx Ibuprofen [Motrin] 800 mg PO Q8HR PRN #30 tablet 12/12/18 Unknown Rx traMADoL [Ultram 50 MG tab] 50 mg PO Q6HR PRN #15 tablet 12/12/18 Unknown Rx Erythromycin [Erythromycin Ophth 1 applicatio OD BID #1 tube 02/19/20 Unknown Rx Oint] Eye Injury Exam - Exam General: Vital signs noted. No distress. Alert and acting appropriately. Alert and oriented x3, GCS 15 Pupils are equal round and reactive to light and accommodation, the right upper lid contains an internal hordeolum medially without evidence of superimposed cellulitis. ED Course Vital Signs 02/19/20 07:21 Temperature 98.0 F Pulse Rate 79 Respiratory 18 Rate Blood Pressure 114/79 Blood Pressure 114/79 [Right] O2 Sat by Pulse 95 Oximetry ED Medical Decision Making - Medical Decision Making Patient presents with internal hordeolum, no complication such as periorbital cellulitis. We will prescribe topical therapy continue warm compresses and follow-up with ophthalmology if not improved. - Differential Diagnosis Hordeolum, chalazion Critical care attestation.: If time is entered above; I have spent that time in minutes in the direct care of this critically ill patient, excluding procedure time. ED Disposition Clinical Impression: Hordeolum internum of right upper eyelid Disposition: DC- TO HOME OR SELFCARE Is pt being admited?: No Condition: Good Instructions: Shawn Prescriptions: Erythromycin [Erythromycin Ophth Oint] 1 applicatio OD BID #1 tube Referrals: PRIMARY CARE, [Primary Care Provider] - 3-5 Days TANA IVEY MD [Staff Physician] - 3-5 Days Time of Disposition: 12:39
== END 2020-02-19 12:53 | disposition home or self-care (01) ==
LOC: ED 07:07
DX: H00.021 Hordeolum internum right upper eyelid (principal); F17.200 Nicotine dependence, unspecified, uncomplicated; Z79.899 Other long term (current) drug therapy; Z91.018 Allergy to other foods
CPT/HCPCS: 99281

== ENCOUNTER 2020-11-27 09:18 | Emergency (ER) | payer SELFPAY ==
[2020-11-27 09:38] VITALS: BP 110/69
--- NOTE | 2020-11-27 10:08 | Emergency Department Report ---
Abscess Boil HPI - HPI Chief Complaint: Skin/Abscess/Foreign Body Stated Complaint: BOIL ON FACE/ INFECTED TOE/ NERVE PAIN Time Seen by Provider: 11/27/20 10:08 Duration: >1 Week Location: Other Severity: Mild History: Yes Pain, Yes Purulent Drainage, Yes Previous History, No Fever, No Numbness, No Foreign Body, No Insect Bite HPI: 50 yo aa comes to ER with boil on face. It is open and draining. He is also co chronic nail bed growth issues- p dropping a can on it years ago. Requesting work note. nad on exam. no fever. no chills Home Medications: Previous Rx's Medication Instructions Recorded Last Taken Type Amoxicillin [Trimox CAP] 500 mg PO BID #20 capsule 11/27/20 Unknown Rx Allergies/Adverse Reactions: Allergies Allergy/AdvReac Type Severity Reaction Status Date / Time venom-honey bee Allergy Swelling Verified 12/08/17 16:53 [bee venom (honey bee)] ED Review of Systems ROS: Stated complaint: BOIL ON FACE/ INFECTED TOE/ NERVE PAIN Other details as noted in HPI Comment: All other systems reviewed and negative ED Past Medical Hx - Past Medical History Previous Medical History?: Yes Additional medical history: Back pain/injury - Surgical History Past Surgical History?: No - Family History Family history: no significant - Social History Smoking Status: Never Smoker Substance Use Type: None - Medications Home Medications: Home Medications Medication Instructions Recorded Confirmed Last Taken Type Amoxicillin [Trimox CAP] 500 mg PO BID #20 capsule 11/27/20 Unknown Rx ED Abscess Boil Physical Exam - Exam General: Vital signs noted. No distress. Alert and acting appropriately. Front/Back of Body, Lg (Color): 1 - 1 cm boil - open and draining Size: 1 cm Exam: Yes Tenderness, Yes Normal Neurologic Exam, Yes Normal Circulation, No Fluctuance, No Surrounding Cellulites/Erythema, No Lymphangitis, No Crepitation, No Heart Murmur ED Course Vital Signs 11/27/20 09:27 Temperature 98.1 F Pulse Rate 66 Respiratory 16 Rate Blood Pressure 110/69 O2 Sat by Pulse 99 Oximetry Critical care attestation.: If time is entered above; I have spent that time in minutes in the direct care of this critically ill patient, excluding procedure time. ED Medical Decision Making - Medical Decision Making no I/D would is draining started on amox educated on nail care and referred to podiatry for his toe nail concerns. ambulatory and non ill appearing; requesting work note; taking po dc home with dc plan of care including follow up, wound care, meds, diet and activity. He verbalizes understanding. Vital Signs 11/27/20 11/27/20 09:27 10:08 Temperature 98.1 F 97.4 F L Pulse Rate 66 60 Respiratory 16 16 Rate Blood Pressure 110/69 O2 Sat by Pulse 99 Oximetry - Differential Diagnosis simple abscess ED Disposition Clinical Impression: Abscess Disposition: 01 HOME / SELF CARE / HOMELESS Is pt being admited?: No Does the pt Need Aspirin: No Condition: Stable Instructions: Skin Abscess Additional Instructions: meds as ordered follow up with pcp next week referral below motrin or tylenol for pain follow up with podiatry for your toe Prescriptions: Amoxicillin [Trimox CAP] 500 mg PO BID #20 capsule Referrals: TUCKER KAMARA MD [Staff Physician] - 3-5 Days Forms: Work/School Release Form(ED) Time of Disposition: 10:11
== END 2020-11-27 10:30 | disposition home or self-care (01) ==
LOC: ED 09:18
DX: L02.01 Cutaneous abscess of face (principal); Z79.899 Other long term (current) drug therapy
CPT/HCPCS: 99282